=== PATIENT | male | born 1970 ===

== ENCOUNTER 2023-10-23 10:34 | Emergency (ER) | payer OTHER ==
--- NOTE | 2023-10-23 10:39 | ED ---
Dizziness HPI <Roma Dove - Last Filed: 10/23/23 10:37> <Jermaine Nguyễn - Last Filed: 10/23/23 14:09> - General Stated Complaint: HTN-confusion Time Seen by Provider: 10/23/23 10:37 - History of Present Illness Initial Comments: The patient is a 53 yr old male who presents to the ed with complaints of confusion and disorientation and high blood pressure that started sometimes in the evening. the patient has borderline BP issues but is not on medication. BP was maybe 160/108 this morning. has been on antibiotics for dental infection at this time. states he has been moving extremities but seems off. (Roam Dove) Dictation was produced using [employer] dictation software. please excuse any grammatical, word or spelling errors. Chief Complaint: 53-year-old male brought in by for altered mental status History of Present Illness: Patient 53-year-old male he has past medical history of hypertension. He does not compliant with taking his antihypertensive medications. 3 to 4 days ago patient had dental surgery. He states postoperatively he was doing fine however last night he had difficulty sleeping started to have acute on chronic headache and reports that patient seems to be disoriented. Denies any numbness tingling paresthesias to the arms or legs. Denies at this the worst ache of his life. Denies thunderclap in nature. Denies any strokelike symptoms. No chest pain no shortness of breath. The ROS documented in this emergency department record has been reviewed and confirmed by me. Those systems with pertinent positive or negative responses have been documented in the HPI. All other systems are other negative and/or noncontributory. (Jermaine Nguyễn) - Related Data Home Medications Medication Instructions Recorded Confirmed Amoxicillin 500 mg PO QID 10/23/23 10/23/23 Tstyeox-[id number]-[id number] [id number] 2 tab PO Q8H PRN 10/23/23 10/23/23 [Excedrin] Ibuprofen [Motrin Ib] 400 mg PO Q8H PRN 10/23/23 10/23/23 Multivitamins, Thera [Multivitamin 1 tab PO DAILY 10/23/23 10/23/23 (formulary)] Sea Rodriguez Vitamin 3 cap PO DAILY 10/23/23 10/23/23 Allergies Allergy/AdvReac Type Severity Reaction Status Date / Time No Known Allergies Allergy Verified 10/23/23 11:40 Review of Systems ROS Other: All systems not noted in ROS Statement are negative. <Roma Dove - Last Filed: 10/23/23 10:37> ROS Other: All systems not noted in ROS Statement are negative. <Jermaine Nguyễn - Last Filed: 10/23/23 14:09> ROS Statement: Those systems with pertinent positive or pertinent negative responses have been documented in the HPI. General Exam <Roma Dove - Last Filed: 10/23/23 10:37> <Jermaine Nguyễn - Last Filed: 10/23/23 14:09> - General Exam Comments Initial Comments: Visual Physical Exam Vital signs reviewed General: Well-appearing, nontoxic, no acute distress. Head: Normocephalic, atraumatic Eyes: PERRLA, EOMI ENT: Airway patent Chest: Nonlabored breathing Skin: No visual rash, normal skin tone Neuro: Alert and oriented 3 Musculoskeletal: No gross abnormalities (Roma Dove) PHYSICAL EXAM: General Impression: Alert and oriented x3, not in acute distress HEENT: Normocephalic atraumatic, extra-ocular movements intact, pupils equal and reactive to light bilaterally, mucous membranes moist. Cardiovascular: Heart regular rate and rhythm Chest: Able to complete full sentences, no retractions, no tachypnea Abdomen: abdomen soft, non-tender, non-distended, no organomegaly Musculoskeletal: Pulses present and equal in all extremities, no peripheral edema Motor: no focal deficits noted Neurological: CN II-XII grossly intact, no focal motor or sensory deficits noted Skin: Intact with no visualized rashes Psych: Normal affect and mood (Jermaine Nguyễn) Course Vital Signs 10/23/23 10/23/23 10/23/23 10:39 11:00 11:15 Temperature 98.9 F Pulse Rate 71 72 74 Respiratory 18 21 20 Rate Blood Pressure 152/93 171/112 148/96 O2 Sat by Pulse 98 99 97 Oximetry 10/23/23 10/23/23 10/23/23 11:45 12:00 12:15 Temperature Pulse Rate 75 67 67 Respiratory 21 20 17 Rate Blood Pressure 142/92 151/83 155/102 O2 Sat by Pulse 97 97 97 Oximetry 10/23/23 12:30 Temperature Pulse Rate 63 Respiratory 16 Rate Blood Pressure 124/86 O2 Sat by Pulse 97 Oximetry EKG Findings - EKG Comments: EKG Findings:: My EKG interpretation: Ventricular rate 67, sinus rhythm,. 159, cures 104, QTc 394. No MI prolongation, no QTC prolongation, no ST or T-wave changes noted. Overall, this EKG is unremarkable <Jermaine Nguyễn - Last Filed: 10/23/23 14:09> Medical Decision Making <Roma Dove - Last Filed: 10/23/23 10:37> - Lab Data Result diagrams: 10/23/23 11:00 10/23/23 11:00 <Jermaine Nguyễn - Last Filed: 10/23/23 14:09> - Medical Decision Making Quick note portion completed by myself, electronically signed Roma Dove PAC. (Roma Dove) Was pt. sent in by a medical professional or institution (, PA, CELL ATTENDANT, urgent care, hospital, or prison...) When possible be specific @ -No Did you speak to anyone other than the patient for history (EMS, parent, family, police, friend...)? What history was obtained from this source @ -No Did you review nursing and triage notes (agree or disagree)? Why? @ -I reviewed and agree with nursing and triage notes Were old charts reviewed (outside hosp., previous admission, EMS record, old EKG, old radiological studies, urgent care reports/EKG's, prison records)? Report findings @ -No old charts were reviewed Differential Diagnosis (chest pain, altered mental status, abdominal pain women, abdominal pain men, vaginal bleeding, musculoskeletal, weakness, fever, dyspnea, syncope, headache, dizziness, GI bleed, back pain, seizure, CVA, palpatations, mental health)? @ -Differential Headache: Migraine, tension, cluster, carbon monoxide, central venous thrombosis, pension karma temporal arteritis, acute closure glaucoma, intercranial hemorrhage, m astoiditis, sinusitis, head injury, this is not meant to be an all-inclusive list. EKG interpreted by me (3pts min.). @ -See above X-rays interpreted by me (1pt min.). @ -None done CT interpreted by me (1pt min.). @ -CT scan of the brain is unremarkable U/S interpreted by me (1pt. min.). @ -None done What testing was considered but not performed or refused? (CT, X-rays, U/S, labs)? Why? @ -None What meds were considered but not given or refused? Why? @ -None Did you discuss the management of the patient with other professionals (professionals i.e. , PA, CELL ATTENDANT, lab, RT, psych nurse, director social, certified surgical technologist, teacher, foreign service officer, clinical case manager)? Give summary @ -No Was smoking cessation discussed for >3mins.? @ -No Was critical care preformed (if so, how long)? @ -No Were there social determinants of health that impacted care today? How? (Homelessness, low income, unemployed, alcoholism, drug addiction, transportation, low edu. Level, literacy, decrease access to med. care, group home, rehab)? @ -No Was there de-escalation of care discussed even if they declined (Discuss DNR or withdrawal of care, Hospice)? DNR status @ -No What co-morbidities impacted this encounter? (DM, HTN, Smoking, COPD, CAD, Cancer, CVA, ARF, Chemo, Hep., AIDS, mental health diagnosis, sleep apnea, morbi d obesity)? @ -None Was patient admitted / discharged? Hospital course, mention meds given and rout e, prescriptions, significant lab abnormalities, going to OR and other pertinent info. @ -53-year-old male presents to the emergency department for reported altered mental status. Vital signs stable. Patient well-appearing at the bedside. There was no description of any focal neurologic deficits. Laboratory evaluation is unremarkable. CBC, metabolic panel viral testing is negative. CT brain is negative. Patient given headache cocktail. Symptoms improved. Patient reevaluated bedside to a 7 with complete resolution of symptoms. Family was concerned of what may have happened. It was discussed with patient and his that is unclear what caused patient's symptoms but he does not have any high risk features.. They were not satisfied with my response. Patient is well-appearing. He is in no acute distress. Patient discharged. They are instructed to follow-up closely with primary care doctor. Undiagnosed new problem with uncertain prognosis? @ -No Drug Therapy requiring intensive monitoring for toxicity (Heparin, Nitro, Insulin, Cardizem)? @ -No Were any procedures done? @ -No Diagnosis/symptom? Acute, or Chronic, or Acute on Chronic? Uncomplicated (without systemic symptoms) or Complicated (systemic symptoms)? @ -Altered mental status Side effects of treatment? @ -No Exacerbation, Progression, or Severe Exacerbation? @ -No Poses a threat to life or bodily function? How? (Chest pain, USA, DC, pneumonia, PE, COPD, DKA, ARF, appy, cholecystitis, CVA, Diverticulitis, Homicidal, Suicidal, threat to staff... and all critical care pts) @ -No (Jermaine Nguyễn) - Lab Data Lab Results 10/23/23 10/23/23 10/23/23 Range/Units 11:00 11:00 11:00 WBC 4.6 (3.8-10.6) k/uL RBC 4.52 (4.30-5.90) m/uL Hgb 14.6 (13.0-17.5) gm/dL Hct 41.9 (39.0-53.0) % MCV 92.8 (80.0-100.0) fL MCH 32.3 (25.0-35.0) pg MCHC 34.8 (31.0-37.0) g/dL RDW 12.9 (11.5-15.5) % Plt Count 238 (150-450) k/uL MPV 7.6 Neutrophils % 44 % Lymphocytes % 35 % Monocytes % 16 % Eosinophils % 0 % Basophils % 1 % Neutrophils # 2.0 (1.3-7.7) k/uL Lymphocytes # 1.6 (1.0-4.8) k/uL Monocytes # 0.7 (0-1.0) k/uL Eosinophils # 0.0 (0-0.7) k/uL Basophils # 0.0 (0-0.2) k/uL Sodium 137 (137-145) mmol/L Potassium 4.1 (3.5-5.1) mmol/L Chloride 105 (98-107) mmol/L Carbon Dioxide 25 (22-30) mmol/L Anion Gap 7 mmol/L BUN 12 (9-20) mg/dL Creatinine 0.91 (0.66-1.25) mg/dL Est GFR (CKD-EPI)AfAm >90 (>60 ml/min/1.73 sqM) Est GFR (CKD-EPI)NonAf >90 (>60 ml/min/1.73 sqM) Glucose 95 (74-99) mg/dL Calcium 8.8 (8.4-10.2) mg/dL Total Bilirubin 0.5 (0.2-1.3) mg/dL AST 38 (17-59) U/L ALT 32 (4-49) U/L Alkaline Phosphatase 111 (38-126) U/L Troponin I <0.012 (0.000-0.034) ng/mL Total Protein 8.0 (6.3-8.2) g/dL Albumin 4.1 (3.5-5.0) g/dL Influenza Type A (PCR) (Not Detectd) Influenza Type B (PCR) (Not Detectd) RSV (PCR) (Not Detectd) SARS-CoV-2 (PCR) (Not Detectd) 10/23/23 Range/Units 12:40 WBC (3.8-10.6) k/uL RBC (4.30-5.90) m/uL Hgb (13.0-17.5) gm/dL Hct (39.0-53.0) % MCV (80.0-100.0) fL MCH (25.0-35.0) pg MCHC (31.0-37.0) g/dL RDW (11.5-15.5) % Plt Count (150-450) k/uL MPV Neutrophils % % Lymphocytes % % Monocytes % % Eosinophils % % Basophils % % Neutrophils # (1.3-7.7) k/uL Lymphocytes # (1.0-4.8) k/uL Monocytes # (0-1.0) k/uL Eosinophils # (0-0.7) k/uL Basophils # (0-0.2) k/uL Sodium (137-145) mmol/L Potassium (3.5-5.1) mmol/L Chloride (98-107) mmol/L Carbon Dioxide (22-30) mmol/L Anion Gap mmol/L BUN (9-20) mg/dL Creatinine (0.66-1.25) mg/dL Est GFR (CKD-EPI)AfAm (>60 ml/min/1.73 sqM) Est GFR (CKD-EPI)NonAf (>60 ml/min/1.73 sqM) Glucose (74-99) mg/dL Calcium (8.4-10.2) mg/dL Total Bilirubin (0.2-1.3) mg/dL AST (17-59) U/L ALT (4-49) U/L Alkaline Phosphatase (38-126) U/L Troponin I (0.000-0.034) ng/mL Total Protein (6.3-8.2) g/dL Albumin (3.5-5.0) g/dL Influenza Type A (PCR) Not Detected (Not Detectd) Influenza Type B (PCR) Not Detected (Not Detectd) RSV (PCR) Not Detected (Not Detectd) SARS-CoV-2 (PCR) Not Detected (Not Detectd) Disposition <Roma Dove - Last Filed: 10/23/23 10:37> Is patient prescribed a controlled substance at d/c from ED?: No Time of Disposition: 14:09 <Jermaine Nguyễn - Last Filed: 10/23/23 14:09> Clinical Impression: Altered mental status Disposition: HOME SELF-CARE Condition: Good Instructions (If sedation given, give patient instructions): Altered Mental Status (ED) Referrals: None,Stated [Primary Care Provider] - 1-2 days
[2023-10-23 11:05] VITALS: TEMP 98.9
[2023-10-23 11:27] LABS: ALT 32 U/L (4-49); AST 38 U/L (17-59); African American GFR (CKD) >90 (>60 ml/min/1.73 sqM); Albumin 4.1 g/dL (3.5-5.0); Alkaline Phosphatase 111 U/L (38-126); Anion Gap 7 mmol/L; Blood Urea Nitrogen 12 mg/dL (9-20); Calcium 8.8 mg/dL (8.4-10.2); Carbon Dioxide 25 mmol/L (22-30); Chloride 105 mmol/L (98-107); Glucose 95 mg/dL (74-99); Non-African American GFR(CKD) >90 (>60 ml/min/1.73 sqM); Potassium 4.1 mmol/L (3.5-5.1); Sodium 137 mmol/L (137-145); Total Bilirubin 0.5 mg/dL (0.2-1.3)
[2023-10-23 11:41] LABS: Basophils % (A) 1 %; Eosinophils % (A) 0 %; HCT 41.9 % (39.0-53.0); HGB 14.6 gm/dL (13.0-17.5); Lymphocytes # (A) 1.6 k/uL (1.0-4.8); Lymphocytes % (A) 35 %; MCH 32.3 pg (25.0-35.0); MCHC 34.8 g/dL (31.0-37.0); MCV 92.8 fL (80.0-100.0); Mean Platelet Volume 7.6; Monocytes # (A) 0.7 k/uL (0-1.0); Monocytes % (A) 16 %; Neutrophils % (A) 44 %; Platelet Count 238 k/uL (150-450); RBC 4.52 m/uL (4.30-5.90); RDW 12.9 % (11.5-15.5); WBC 4.6 k/uL (3.8-10.6)
--- NOTE | 2023-10-23 11:41 | CT ---
EXAMINATION TYPE: CT brain wo con CT DLP: 1183.5 mGycm, Automated exposure control for dose reduction was used. DATE OF EXAM: 10/23/2023 11:26 AM COMPARISON: None. CLINICAL INDICATION:Male, 53 years old with history of confusion disorientation, Confusion, Disorient ated. History of HTN TECHNIQUE: Brain: Axial CT images of the brain were obtained with coronal and sagittal reformats created and rev iewed. Contrast used: None. Oral contrast used: None. FINDINGS: Brain: Extra-axial spaces: No abnormal extra-axial fluid collections. Ventricular system: Within normal limits Cerebral parenchyma: No acute intraparenchymal hemorrhage or mass effect. The martinez-white junction is well differentiated. Cerebellum: Unremarkable. Mass effect: No evidence of midline shift. Intracranial vasculature: unremarkable Soft tissues: Normal. Calvarium/osseous structures: No depressed skull fracture. Paranasal sinuses and mastoid air cells: Mild scattered paranasal sinus disease. Visualized orbits: Orbital contents are intact. IMPRESSION: No acute intracranial process.
[2023-10-23] MEDS: SODIUM CHLORIDE 0.9% 1,000 ML IV STA (11:52)
[2023-10-23] MEDS: diphenhydrAMINE 50 MG/ML 1 ML VIAL IVP STA (11:53)
[2023-10-23] MEDS: ONDANSETRON 4 MG/2 ML VIAL IVP STA (11:54)
[2023-10-23] MEDS: KETOROLAC 15 MG/ML 1 ML VIAL IVP STA (11:55)
[2023-10-23 13:08] VITALS: PULSE 63; RESP 16
[2023-10-23 14:41] VITALS: BP 129/89
== END 2023-10-23 14:27 | disposition home or self-care (01) ==
LOC: EC 10:34
DX: R41.82 Altered mental status, unspecified (principal); I10 Essential (primary) hypertension; Z79.82 Long term (current) use of aspirin; Z79.899 Other long term (current) drug therapy; Z20.822 Contact with and (suspected) exposure to COVID-19
CPT/HCPCS: 93005; 80053; 84484; 85025; 87636; 70450; 99284; 96374; 96375 ×2; 96361; J1200; J2405; J1885; 36415